=== PATIENT | female | born 1990 | race Caucasian/White ===

== ENCOUNTER 2018-09-05 08:00 | Outpatient (CLI) | payer OTHER | END 2018-09-05 23:59 | disposition home or self-care (01) | LOC: LAB.WCP 08:00 | PROVIDERS: ATTEND Physician Assistant | DX: N91.2 Amenorrhea, unspecified (principal) | CPT/HCPCS: 36415; 84702 ==

== ENCOUNTER 2018-09-09 08:02 | Outpatient (CLI) | payer OTHER | END 2018-09-09 08:03 | disposition home or self-care (01) | LOC: LAB.WCP 08:02 | PROVIDERS: ATTEND Physician Assistant | DX: N91.2 Amenorrhea, unspecified (principal) | CPT/HCPCS: 36415; 84702 ==

== ENCOUNTER 2018-09-19 10:24 | Emergency (ER) | payer OTHER ==
[2018-09-19 10:49] LABS: BASOPHILS % (AUTO) 0.4 %; EOSINOPHILS # (AUTO) 0.2 10^3/uL (0.0-0.7); EOSINOPHILS % (AUTO) 2.5 %; LYMPHOCYTES # (AUTO) 2.6 10^3/uL (1.5-3.5); LYMPHOCYTES % (AUTO) 31.2 %; MEAN CORPUSCULAR HEMOGLOBIN 25.5 pg (27.0-31.0); MEAN CORPUSCULAR HGB CONC 32.5 g/dL (32.0-36.0); MEAN CORPUSCULAR VOLUME 78.4 fL (81.0-99.0); MEAN PLATELET VOLUME 8.1 fL (7.9-10.8); MONOCYTES # (AUTO) 0.8 10^3/uL (0.0-1.0); MONOCYTES % (AUTO) 9.2 %; NEUTROPHILS # (AUTO) 4.7 10^3/uL (1.5-6.6); NEUTROPHILS % (AUTO) 56.7 %; PLT - PLATELET COUNT 292 10^3/uL (130-450); RED BLOOD COUNT 5.09 10^6/uL (4.20-5.40); RED CELL DISTRIBUTION WIDTH 14.4 % (12.0-15.0); WHITE BLOOD COUNT 8.4 x10^3/uL (4.8-10.8)
[2018-09-19 11:04] LABS: ALBUMIN 4.3 g/dL (3.2-5.5); ALBUMIN/GLOBULIN RATIO 1.4 (1.0-2.2); BILIRUBIN,TOTAL 0.5 mg/dL (0.2-1.0); CREATININE 0.6 mg/dL (0.4-1.0); TOTAL PROTEIN 7.4 g/dL (6.7-8.2)
--- NOTE | 2018-09-19 12:28 | ED Physician Documentation ---
PD HPI ABD PAIN - Stated complaint Stated Complaint: 9 WKS PREG/BLEEDING - Chief complaint Chief Complaint: Abd Pain - History obtained from History obtained from: Patient - History of Present Illness Timing - onset: Today (G4, P2 at 9 weeks gestation, she is confident of her dates with vaginal bleeding that started light and became heavy today with resolved cramping.) Review of Systems Constitutional: reports: Reviewed and negative Throat: reports: Reviewed and negative Cardiac: reports: Reviewed and negative Respiratory: reports: Reviewed and negative PD PAST MEDICAL HISTORY - Present Medications Home Medications: Ambulatory Orders Medication Instructions Recorded Confirmed No Known Home Medications 09/19/18 09/19/18 Pnv No.122/Iron/Folic Acid 1 each PO 09/19/18 [ Multi Tablet] - Allergies Allergies/Adverse Reactions: Allergies Allergy/AdvReac Type Severity Reaction Status Date / Time No Known Drug Allergies Allergy Verified 09/19/18 10:34 PD ED PE NORMAL - Vitals Vital signs reviewed: Yes - General General: Alert and oriented X 3, No acute distress - Neck Neck: Supple, no meningeal sign, No bony TTP - Cardiac Cardiac: RRR, No murmur - Respiratory Respiratory: No respiratory distress, Clear bilaterally - Abdomen Abdomen: Normal bowel sounds, Soft, Non tender - Female Female : [employer] present ([place]), Other (Tissue in vault. Cx closed.) - Back Back: No CVA TTP, No spinal TTP - Derm Derm: Normal color, Warm and dry - Extremities Extremities: No edema, No calf tenderness / cord - Neuro Neuro: Alert and oriented X 3, Normal speech Results - Vitals Vitals: Vital Signs - 24 hr 09/19/18 09/19/18 09/19/18 10:33 12:40 14:16 Temperature 36.8 C Heart Rate 70 77 Respiratory 16 18 16 Rate Blood Pressure 118/78 112/77 O2 Saturation 99 98 Oxygen O2 Source Room air - Labs Labs: Laboratory Tests 09/19/18 09/19/18 09/19/18 10:46 10:46 10:46 WBC 8.4 RBC 5.09 Hgb 13.0 Hct 39.9 MCV 78.4 L MCH 25.5 L MCHC 32.5 RDW 14.4 Plt Count 292 MPV 8.1 Neut # (Auto) 4.7 Lymph # (Auto) 2.6 Randall # (Auto) 0.8 Eos # (Auto) 0.2 Baso # (Auto) 0.0 Absolute Nucleated RBC 0.01 Nucleated RBC % 0.1 Sodium 136 Potassium 3.8 Chloride 103 Carbon Dioxide 26 Anion Gap 7.0 BUN 7 Creatinine 0.6 Estimated GFR (MDRD) 121 Glucose 91 Calcium 9.0 Total Bilirubin 0.5 AST 22 ALT 24 Alkaline Phosphatase 43 Total Protein 7.4 Albumin 4.3 Globulin 3.1 Albumin/Globulin Ratio 1.4 Lipase 40 HCG, Quant 1130.46 Urine Color Urine Clarity Urine pH Ur Specific [place] Urine Protein Urine Glucose (UA) Urine Ketones Urine Occult Blood Urine Nitrite Urine Bilirubin Urine Urobilinogen Ur Leukocyte Esterase Urine RBC Urine WBC Ur Squamous Epith Cells Urine Bacteria Ur Microscopic Review Urine Culture Comments Blood Type 09/19/18 09/19/18 10:46 12:26 WBC RBC Hgb Hct MCV MCH MCHC RDW Plt Count MPV Neut # (Auto) Lymph # (Auto) Randall # (Auto) Eos # (Auto) Baso # (Auto) Absolute Nucleated RBC Nucleated RBC % Sodium Potassium Chloride Carbon Dioxide Anion Gap BUN Creatinine Estimated GFR (MDRD) Glucose Calcium Total Bilirubin AST ALT Alkaline Phosphatase Total Protein Albumin Globulin Albumin/Globulin Ratio Lipase HCG, Quant Urine Color RED/BLOODY Urine Clarity SL. CLOUDY Urine pH 5.0 Ur Specific [place] 1.010 Urine Protein 100 H Urine Glucose (UA) NEGATIVE Urine Ketones NEGATIVE Urine Occult Blood LARGE H Urine Nitrite NEGATIVE Urine Bilirubin NEGATIVE Urine Urobilinogen 0.2 (NORMAL) Ur Leukocyte Esterase TRACE H Urine RBC TNTC H Urine WBC 6-10 H Ur Squamous Epith Cells FEW Squamous Urine Bacteria Few Ur Microscopic Review INDICATED Urine Culture Comments INDICATED Blood Type B POSITIVE - Rads (name of study) OB Sono Radiology: EMP read contemporaneously ( of unknown location, no definite intrauterine .) PD MEDICAL DECISION MAKING - ED course ED course: 28-year-old G4, P2 presents with vaginal bleeding in , given the tissue found in the vault this likely represents miscarriage. Departure - Departure Disposition: Home, Self Care Clinical Impression: Miscarriage Condition: Good Record reviewed to determine appropriate education?: Yes Instructions: ED Miscarriage Completed Comments: Your blood type is B positive. Return for increased bleeding, increased pain or other new symptoms. Follow-up with your OB on Saturday for recheck.
[2018-09-19 12:55] LABS: BILIRUBIN,URINE NEGATIVE (NEGATIVE); GLUCOSE, URINE (UA) NEGATIVE (NEGATIVE); KETONES,URINE (UA) NEGATIVE (NEGATIVE); LEUKOCYTE ESTERASE, URINE TRACE (NEGATIVE); NITRITE,URINE NEGATIVE (NEGATIVE); OCCULT BLOOD,URINE LARGE (NEGATIVE); PROTEIN,URINE 100 mg/dL (NEGATIVE); UROBILINOGEN,URINE 0.2 (NORMAL) E.U./dL (NORMAL)
[2018-09-19 13:10] LABS: BACTERIA,URINE Few /HPF (None Seen); CLARITY,URINE SL. CLOUDY (CLEAR); RBC,URINE TNTC /HPF (0-5); SQUAMOUS EPITHELIAL CELL,UR FEW Squamous (<= Few)
--- NOTE | 2018-09-19 13:50 | Ultrasound Report ---
Reason: Preg/ VB Procedure Date: 09/19/2018 Accession Number: [id number] / [id number] Procedure: US - OB First Trimester CPT Code: FULL RESULT: EXAM: FIRST TRIMESTER OBSTETRIC ULTRASOUND (Less than 11 weeks) EXAM DATE: 09/19/2018 12:55 PM. CLINICAL HISTORY: /vaginal bleeding. LMP: 07/19/2018. COMPARISONS: None. TECHNIQUE: Transabdominal and transvaginal ultrasound examination with static image documentation. CLINICAL DATES: EGA 8 weeks 6 days with LUIS CARLOS 04/25/2019 based on LMP. ASSESSMENT: Gestational Sac: None seen. Embryo: None seen. Cardiac activity: None seen. Yolk sac: None seen. Other: Within the endometrium is a 0.7 x 1.1 x 1.0 cm hypoechoic focus surrounded by 3 mm thick hypoechoic rim, nonspecific. MATERNAL STRUCTURES: Uterus: Retroverted. Unremarkable. Cervix: Closed. Right Ovary/Adnexa: The ovary measures 2.8 x 2.2 x 3.2 cm, volume 10.5 cc. No definite corpus luteum is detected. Left Ovary/Adnexa: The ovary measures 2.6 x 2.2 x 2.6 cm, volume 10.8 cc. No definite corpus luteum is detected. Free Fluid: Small amount of free fluid is detected in the cul-de-sac. Other: None. IMPRESSION: 1. of unknown location. No definite intrauterine or extrauterine is seen. Differential diagnosis includes early intrauterine , occult ectopic , and complete missed . Recommend close clinical followup and correlation with serial beta hCG, and followup ultrasound if indicated. RADIA
[2018-09-19 14:16] VITALS: BP 112/77
== END 2018-09-19 14:21 | disposition home or self-care (01) ==
LOC: ED 10:24
DX: O03.9 Complete or unspecified spontaneous abortion without complication (principal)
CPT/HCPCS: 36415; 76801; 76817; 80053; 81001; 81003; 83690; 84702; 85025; 86900; 86901; 87086; 99283

== ENCOUNTER 2018-09-22 07:00 | Outpatient (CLI) | payer OTHER | END 2018-09-22 07:01 | disposition home or self-care (01) | LOC: LAB.WCP 07:00 | PROVIDERS: ATTEND Physician Assistant | DX: N91.2 Amenorrhea, unspecified (principal) | CPT/HCPCS: 36415; 84702 ==

== ENCOUNTER 2018-09-30 09:35 | Outpatient (CLI) | payer OTHER | END 2018-09-30 09:36 | disposition home or self-care (01) | LOC: LAB.WCP 09:35 | PROVIDERS: ATTEND Physician Assistant Medical | DX: Z33.1 Pregnant state, incidental (principal) | CPT/HCPCS: 36415; 84702 ==

== ENCOUNTER 2019-05-14 08:00 | Outpatient (CLI) | payer OTHER | END 2019-05-14 23:59 | LOC: LAB.R 08:00 → MERGE 12:28 → LAB.R 23:59 | PROVIDERS: ATTEND Family Medicine | DX: R05 Cough (principal) | CPT/HCPCS: 87275; 87276 ==

== ENCOUNTER 2020-05-12 12:34 | Emergency (ER) | payer OTHER ==
[2020-05-12 13:14] LABS: BASOPHILS % (AUTO) 0.3 %; EOSINOPHILS # (AUTO) 0.1 10^3/uL (0.0-0.7); EOSINOPHILS % (AUTO) 1.6 %; HCT - HEMATOCRIT 38.7 % (37.0-47.0); HGB - HEMOGLOBIN 13.1 g/dL (12.0-16.0); LYMPHOCYTES # (AUTO) 2.2 10^3/uL (1.5-3.5); LYMPHOCYTES % (AUTO) 31.1 %; MEAN CORPUSCULAR HEMOGLOBIN 26.4 pg (27.0-31.0); MEAN CORPUSCULAR HGB CONC 33.9 g/dL (32.0-36.0); MEAN PLATELET VOLUME 10.9 fL (7.9-10.8); MONOCYTES # (AUTO) 0.6 10^3/uL (0.0-1.0); MONOCYTES % (AUTO) 8.2 %; NEUTROPHILS # (AUTO) 4.1 10^3/uL (1.5-6.6); NEUTROPHILS % (AUTO) 58.5 %; PLT - PLATELET COUNT 313 10^3/uL (130-450); RED BLOOD COUNT 4.96 10^6/uL (4.20-5.40); RED CELL DISTRIBUTION WIDTH 13.8 % (12.0-15.0)
[2020-05-12 13:21] LABS: BILIRUBIN,URINE NEGATIVE (NEGATIVE); GLUCOSE, URINE (UA) NEGATIVE (NEGATIVE); KETONES,URINE (UA) NEGATIVE (NEGATIVE); LEUKOCYTE ESTERASE, URINE NEGATIVE (NEGATIVE); NITRITE,URINE NEGATIVE (NEGATIVE); OCCULT BLOOD,URINE MODERATE (NEGATIVE); PROTEIN,URINE NEGATIVE (NEGATIVE); UROBILINOGEN,URINE 0.2 (NORMAL) E.U./dL (NORMAL)
[2020-05-12 13:23] LABS: PT - PROTHROMBIN TIME 11.4 secs (9.9-12.6)
[2020-05-12 13:25] LABS: CLARITY,URINE CLEAR (CLEAR); HCG UR QUAL NEGATIVE
[2020-05-12 13:28] LABS: BACTERIA,URINE None Seen /HPF (None Seen); RBC,URINE 0-5 /HPF (0-5); SQUAMOUS EPITHELIAL CELL,UR RARE Squamous (<= Few); WBC,URINE 0-3 /HPF (0-5)
[2020-05-12 13:30] LABS: PARTIAL THROMBOPLASTIN TIME 27.1 secs (24.9-33.3)
--- NOTE | 2020-05-12 13:50 | ED Physician Documentation ---
History of Present Illness - Stated complaint Stated Complaint: ,FAINTED - Chief complaint Chief Complaint: Abd Pain - History obtained from History obtained from: Patient - History of Present Illness Timing: Today Pain level max: 0 Pain level now: 0 - Additonal information Additional information: 29-year-old female presents to the emergency department stating that she passed a large clot last week vaginally. 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 She states that today she had another large amount of bleeding. Currently the bleeding has resolved. Nothing makes it better or worse. She felt lightheaded and dizzy today when the bleeding was ongoing, but did not pass out. No injuries. Not on any blood thinners. Has not had similar symptoms in the past. No history of fibroids or ovarian cyst. Review of Systems Ten Systems: 10 systems reviewed and negative Constitutional: denies: Fever, Chills Cardiac: denies: Chest pain / pressure Respiratory: denies: Cough GI: denies: Abdominal Pain, Vomiting, Diarrhea : denies: Dysuria, Frequency, Hesitancy, Now EGA Skin: denies: Rash Musculoskeletal: denies: Neck pain, Back pain Neurologic: denies: Headache PD PAST MEDICAL HISTORY - Past Medical History Past Medical History: No - Past Surgical History Past Surgical History: No - Present Medications Home Medications: Ambulatory Orders Medication Instructions Recorded Confirmed No Known Home Medications 09/19/18 09/19/18 No122/Iron/Folic Acid 1 each PO 09/19/18 [ Multi Tablet] - Allergies Allergies/Adverse Reactions: Allergies Allergy/AdvReac Type Severity Reaction Status Date / Time No Known Drug Allergies Allergy Verified 05/12/20 12:43 - Social History Does the pt smoke?: No Smoking Status: Never smoker Does the pt drink ETOH?: Yes Does the pt have substance abuse?: No - Immunizations Immunizations are current?: Yes PD ED PE NORMAL - Vitals Vital signs reviewed: Yes - General General: Alert and oriented X 3, No acute distress - HEENT HEENT: Moist mucous membranes - Neck Neck: Supple, no meningeal sign - Cardiac Cardiac: RRR - Respiratory Respiratory: No respiratory distress, Clear bilaterally - Abdomen Abdomen: Soft, Non tender, Non distended - Female Female : Pt declined - Derm Derm: Warm and dry - Extremities Extremities: No edema - Neuro Neuro: Alert and oriented X 3 - Psych Psych: Normal mood, Normal affect Results - Vitals Vitals: Vital Signs - 24 hr 05/12/20 05/12/20 05/12/20 12:38 14:43 15:22 Temperature 36.3 C L Heart Rate 88 72 77 Respiratory 18 19 16 Rate Blood Pressure 156/99 H 111/80 114/79 O2 Saturation 99 100 99 Oxygen O2 Source Room air - Labs Labs: Laboratory Tests 05/12/20 05/12/20 05/12/20 12:44 12:54 12:54 WBC 7.0 RBC 4.96 Hgb 13.1 Hct 38.7 MCV 78.0 L MCH 26.4 L MCHC 33.9 RDW 13.8 Plt Count 313 MPV 10.9 H Neut # (Auto) 4.1 Lymph # (Auto) 2.2 Harper # (Auto) 0.6 Eos # (Auto) 0.1 Baso # (Auto) 0.0 Absolute Nucleated RBC 0.00 Nucleated RBC % 0.0 PT 11.4 INR 1.0 APTT 27.1 Sodium Potassium Chloride Carbon Dioxide Anion Gap BUN Creatinine Estimated GFR (MDRD) Glucose Calcium Total Bilirubin AST ALT Alkaline Phosphatase Total Protein Albumin Globulin Albumin/Globulin Ratio Urine Color YELLOW Urine Clarity CLEAR Urine pH 6.0 Ur Specific [place] >=1.030 H Urine Protein NEGATIVE Urine Glucose (UA) NEGATIVE Urine Ketones NEGATIVE Urine Occult Blood MODERATE H Urine Nitrite NEGATIVE Urine Bilirubin NEGATIVE Urine Urobilinogen 0.2 (NORMAL) Ur Leukocyte Esterase NEGATIVE Urine RBC 0-5 Urine WBC 0-3 Ur Squamous Epith Cells RARE Squamous Urine Bacteria None Seen Ur Microscopic Review INDICATED Urine Culture Comments NOT INDICATED Urine HCG, Qual NEGATIVE 05/12/20 13:35 WBC RBC Hgb Hct MCV MCH MCHC RDW Plt Count MPV Neut # (Auto) Lymph # (Auto) [place] # (Auto) Eos # (Auto) Baso # (Auto) Absolute Nucleated RBC Nucleated RBC % PT INR APTT Sodium 137 Potassium 3.7 Chloride 107 Carbon Dioxide 21 Anion Gap 9.0 BUN 13 Creatinine 0.7 Estimated GFR (MDRD) 100 Glucose 98 Calcium 9.2 Total Bilirubin 0.3 AST 33 ALT 16 Alkaline Phosphatase 37 L Total Protein 7.8 Albumin 4.1 Globulin 3.7 Albumin/Globulin Ratio 1.1 Urine Color Urine Clarity Urine pH Ur Specific [place] Urine Protein Urine Glucose (UA) Urine Ketones Urine Occult Blood Urine Nitrite Urine Bilirubin Urine Urobilinogen Ur Leukocyte Esterase Urine RBC Urine WBC Ur Squamous Epith Cells Urine Bacteria Ur Microscopic Review Urine Culture Comments Urine HCG, Qual - Rads (name of study) pelvic ultrasound Radiology: Prelim report reviewed, EMP read contemporaneously, See rad report (1. No acute sonographic abnormality identified in the pelvis. ) PD MEDICAL DECISION MAKING - ED course Complexity details: reviewed results, re-evaluated patient, considered differential, d/w patient ED course: 29-year-old female with dysfunctional uterine bleeding. Bleeding resolved in the emergency department. She declined a pelvic exam in the emergency department. No acute findings on pelvic ultrasound. No significant lab abnormalities Patient counseled regarding signs and symptoms for which I believe and urgent re-evaluation would be necessary. Patient with good understanding of and agreement to plan and is comfortable going home at this time This document was made in part using voice recognition software. While efforts are made to proofread this document, sound alike and grammatical errors may occur. Departure - Departure Disposition: 01 Home, Self Care Clinical Impression: Dysfunctional uterine bleeding Condition: Good Instructions: ED Bleed Irregular Vaginal Follow-Up: Pamella Brown PA [Primary Care Provider] - Within 1 week Comments: Your testing is normal today and your bleeding seems to have mostly resolved. Return if you worsen. Follow-up with your doctor for further care Discharge Date/Time: 05/12/20 15:29
[2020-05-12 14:02] LABS: ALBUMIN 4.1 g/dL (3.2-5.5); ALBUMIN/GLOBULIN RATIO 1.1 (1.0-2.2); BILIRUBIN,TOTAL 0.3 mg/dL (0.2-1.0); CALCIUM 9.2 mg/dL (8.5-10.3); CREATININE 0.7 mg/dL (0.4-1.0); POTASSIUM 3.7 mmol/L (3.5-5.0); TOTAL PROTEIN 7.8 g/dL (6.7-8.2)
[2020-05-12 15:23] VITALS: BP 114/79
--- NOTE | 2020-05-12 15:29 | Ultrasound Report ---
PROCEDURE: Pelvic w/Transvag+Doppler Comp INDICATIONS: menorrhagia TECHNIQUE: Real-time scanning was performed of the pelvic organs, with image documentation. Additional endovagi nal scanning was necessary due to incomplete visualization of the adnexal and endometrial structures by transabdominal scanning. COMPARISON: None. FINDINGS: Transabdominal scanning: Limited scanning through the kidneys shows no hydronephrosis. There is a sm all amount of pelvic free fluid which appears within physiologic limits. Endovaginal scanning: Uterus: Uterus measures 9.1 x 5.3 x 5.7 cm. The endometrium measures approximately 0.2 cm in thickne ss. A small amount of endometrial fluid is present. Ovaries: The right ovary measures 2.6 x 1.5 x 1.5 cm and the left ovary measures 2.8 x 2.1 x 2.2 cm. No adnexal masses identified. There is patent arterial flow demonstrated in the right and left ovari es on Doppler interrogation. IMPRESSION: 1. No acute sonographic abnormality identified in the pelvis. Reviewed by: José Miguel Solis MD on 05/12/2020 3:28 PM PST Approved by: José Miguel Solis MD on 05/12/2020 3:28 PM PST Station ID: [id number]
== END 2020-05-12 15:29 | disposition home or self-care (01) ==
LOC: ED 12:34
DX: N93.8 Other specified abnormal uterine and vaginal bleeding (principal)
CPT/HCPCS: 80053; 81001; 81003; 81025; 85025; 85610; 85730; 87086; 93975; 99284

== ENCOUNTER 2021-07-28 09:34 | Outpatient (CLI) | payer OTHER ==
[2021-07-30 14:46] LABS: NIL 0.02 IU/mL
== END 2021-07-28 09:35 | disposition home or self-care (01) ==
LOC: LAB.N 09:34
PROVIDERS: ATTEND Nurse Practitioner
DX: Z00.00 Encounter for general adult medical examination without abnormal findings (principal)
CPT/HCPCS: 36415; 86480